=== PATIENT | male | born 1990 | race Caucasian/White ===

== ENCOUNTER 2018-07-04 07:08 | Emergency (ER) | payer OTHER ==
[2018-07-04 07:20] VITALS: BP 134/92
--- NOTE | 2018-07-04 07:34 | UC ---
Ear Complaint HPI - HPI Summary HPI Summary: 28 yo gentleman with ear pain since last night. + cough x last few days, with colored sputum, no blood. No sob / cp. Hx ear infections mamadou on Left. No rash. No GI issues. - History of Current Complaint Chief Complaint: UCEar Stated Complaint: EAR COMPLAINT Time Seen by Provider: 07/04/18 07:11 Hx Obtained From: Patient Pain Intensity: 2 - Allergies/Home Medications Allergies/Adverse Reactions: Allergies Allergy/AdvReac Type Severity Reaction Status Date / Time No Known Allergies Allergy Verified 07/04/18 07:20 Home Medications: Home Medications Acetaminophen TAB* [Tylenol TAB*] 650 mg PO Q4H PRN 07/04/18 [History Confirmed 07/04/18] Multivitamin [Multivitamins] 1 cap PO DAILY 07/04/18 [History Confirmed 07/04/18 ] PMH/Surg Hx/FS Hx/Imm Hx Previously Healthy: Yes - see hpi - Surgical History Surgical History: Yes Surgery Procedure, Year, and Place: bateman implanted L chest and 3 bone marrow extractions. eye surgery as a child - Social History Alcohol Use: Rare Substance Use Type: Marijuana Substance Use Comment - Amount & Last Used: rarely Smoking Status (MU): Never Smoked Tobacco Review of Systems All Other Systems Reviewed And Are Negative: Yes Constitutional: Positive: Negative Skin: Positive: Negative Eyes: Positive: Negative ENT: Positive: Ear Ache, Sinus Congestion Respiratory: Positive: Cough Cardiovascular: Positive: Negative Gastrointestinal: Positive: Negative Genitourinary: Positive: Negative Motor: Positive: Negative Neurovascular: Positive: Negative Musculoskeletal: Positive: Negative Neurological: Positive: Negative Psychological: Positive: Negative Is Patient Immunocompromised?: No Physical Exam Triage Information Reviewed: Yes Appearance: Well-Nourished Vital Signs: Initial Vital Signs Temp 98.0 F 07/04/18 07:15 Pulse 54 07/04/18 07:15 Resp 16 07/04/18 07:15 BP 134/92 07/04/18 07:15 Pulse Ox 96 07/04/18 07:15 Vital Signs Reviewed: Yes Eye Exam: Normal ENT: Positive: Pharyngeal erythema - mild post pharyng redness, no sores noted. , Nasal congestion - mild, Other - L TM dull + redness, intact. EAC ok. R TM dull, no redness. EAC ok. Neck exam: Normal Neck: Positive: Supple, Nontender, No Lymphadenopathy Respiratory Exam: Normal Respiratory: Positive: Chest non-tender, Lungs clear, Normal breath sounds, No respiratory distress Cardiovascular Exam: Normal Cardiovascular: Positive: RRR Abdominal Exam: Normal Abdomen Description: Positive: Nontender Musculoskeletal Exam: Normal - gait steady Neurological Exam: Normal - grossly nonfocal Psychological Exam: Normal - conversing easily Ear Complaint Course/Dx - Course Course Of Treatment: declines work note. May benefit from ENT eval re chronic L ear infections. Will check with pcp. questions as posed answered to the best of my ability. - Differential Dx/Diagnosis Provider Diagnoses: Otitis media L. serious otitis Bilat. URI Discharge - Sign-Out/Discharge Documenting (check all that apply): Patient Departure All imaging exams completed and their final reports reviewed: No Studies - Discharge Plan Condition: Stable Disposition: HOME Patient Education Materials: Ear Infection (ED), Serous Otitis Media (ED), Upper Respiratory Infection (ED), Antihistamine (By mouth), Hyperthyroidism (ED) Referrals: [facility] [Outside] Additional Instructions: See a primary care physician as soon as you are able. Within then next 4 weeks if possible. Seek medical attention for worse or new problems. Minimize caffeine. Drink plenty of water. - Billing Disposition and Condition Condition: STABLE Disposition: Home
== END 2018-07-04 07:54 | disposition home or self-care (01) ==
LOC: UCEAST 07:08
DX: H65.93 Unspecified nonsuppurative otitis media, bilateral (principal); J06.9 Acute upper respiratory infection, unspecified
CPT/HCPCS: 99202; G0463

== ENCOUNTER → 2019-02-11 07:58 | Day surgery (SDC) | payer OTHER ==
[~2019-02-11 07:58] MED LIST: Buffered Lidocaine 1% SYRIN* 1 ML/SYRINGE INTRADERM ONE; Dexamethasone TAB* 4 MG ONE; Dexamethasone TAB* 4 MG PO ONE; DiMENhydriNATE IV* 50 MG/ML VIAL IV PUSH PRN; Famotidine IV* 10 MG/ML 2 ML (20 mg) IV ONE; Famotidine IV* 10 MG/ML 2 ML (20 mg) ONE; Glycopyrrolate IV* 0.2 MG/ML 1 ML VIAL ONE; KETAMINE HCL* 50 MG/ML 10 ML VIAL ONE; Lactated Ringers 1000 ML Bag* 1,000 ML IV SCH; Lidocaine 2% EPI 1:200000 MPF*10-20 ML VIAL ONE; Lidocaine 2% PF * 5 ML VIAL ONE; Midazolam* 1 MG/ML 5 ML VIAL (5 MG) ONE; Morphine 4 MG/ML VIAL (1 ml) 4 MG/ML VIAL IV PRN; Naloxone* 0.4 MG/ML 1 ML VIAL IV PRN; Ondansetron ODT TAB* 4 MG ONE; Ondansetron TAB* 4 MG PO ONE; Oxymetazoline 0.05% NASAL SPR* 15 ML BTL ONE; PROCHLORPERAZINE INJ 5 MG/ML 2 ML VIAL IV PRN; PROCHLORPERAZINE INJ 5 MG/ML 2 ML VIAL ONE; Propofol* 10 MG/ML 20 ML BTL ONE; fentaNYL* 50 MCG/ML 2 ML VIAL (100 MCG VIAL) ONE; oxyCODONE/Acetamin 5/325 MG* TAB ONE; oxyCODONE/Acetamin 5/325 MG* TAB PO PRN
[2019-02-11] MEDS: fentaNYL* 50 MCG/ML 2 ML VIAL (100 MCG VIAL) IV PRN ×2 (11:08→11:15)
--- NOTE | 2019-02-11 11:28 | OP ---
OPERATIVE REPORT: DATE OF OPERATION: 02/11/19 DATE OF : 89 SURGEON: Figueroa Drummond MD. PRE-OP DIAGNOSES: Deviated nasal septum, nasal dyspnea, hypertrophied turbinates. POST-OP DIAGNOSIS: Deviated nasal septum, nasal dyspnea, hypertrophied turbinates. OPERATIVE PROCEDURES: Septoplasty and submucosal resection of inferior turbinates. INDICATION: This 28-year-old gentleman with longstanding history of trauma to the nose in the past w ith nasal dyspnea subsequently to that and having no improvement with medical management. DESCRIPTION OF PROCEDURE: The patient was taken to the operating room, underwent general anesthesia with bag and mask. The patient was then subsequently intubated with LMA. Nose was decongested with Afrin-placed pledgets. Subsequently, 2% lidocaine with epinephrine was infiltrated in the mucosa in both sides of the septum. Right hemitransfixion incision created. Mucoperichondrial flap was elevat ed. Quadrangular cartilage was then disarticulated along the vomer ethmoid complex along the maxilla ry crest. Portion of the maxillary crest was removed. Portion of the vomer ethmoid complex which was quite spurred was removed. The quadrangular cartilage was then scored on its concave surface multip le times with a 15 blade. This was replaced in the midline and secured with multiple mattress suture s, then subsequently Basia splints were applied for securing the mucosa. We then turned our attention to the inferior turbinate. A small incision was made in the inferior tu rbinate mucosa, submucosal elevation was carried out. A small portion of the submucosal tissue was r emoved. Cauterization was carried out for hemostasis. The patient was then awakened, sent to [facility] room in stable condition. COUNTS: Instrument and sponge counts were correct. BLOOD LOSS: Minimal. [id number]/[id number] #: [id number]
[2019-02-11 12:20] VITALS: BP 131/72
== END | disposition home or self-care (01) ==
LOC: OR 07:58
PROVIDERS: ATTEND Otolaryngology
DX: J34.2 Deviated nasal septum (principal); J34.3 Hypertrophy of nasal turbinates
CPT/HCPCS: A9270-GY; J0780; J2250; J2704; J3010; J8540